=== PATIENT | male | born 1965 | race African-American/Black ===

== ENCOUNTER 2021-09-24 22:22 | Emergency (ER) | payer OTHER ==
[~2021-09-24] VITALS: Ht 175.3 cm; Wt 82.0 kg
[2021-09-24 22:26] VITALS: BP 140/87
[2021-09-24] MEDS ORDERED: TETRACAINE 0.5% OPHTH DROPS 4ML LEFTEYE ONE (22:30)
[2021-09-24] MEDS ORDERED: FLUORESCEIN SODIUM 1MG/STRIP LEFTEYE ONE (22:30)
[2021-09-24] MEDS ORDERED: CIPR2.5D13 LEFTEYE (23:41)
[2021-09-25] MEDS ORDERED: CIPROFLOXACIN 0.3% OPHTH SOLN 2.5ML LEFTEYE SCH
== END 2021-09-25 00:15 | disposition home or self-care (01) ==
LOC: ER 22:22
DX: S05.02XA Injury of conjunctiva and corneal abrasion without foreign body, left eye, initial encounter (principal); H10.212 Acute toxic conjunctivitis, left eye; X58.XXXA Exposure to other specified factors, initial encounter; Y93.89 Activity, other specified; Y92.89 Other specified places as the place of occurrence of the external cause; Y99.8 Other external cause status; F12.10 Cannabis abuse, uncomplicated
CPT/HCPCS: 99283